=== PATIENT | female | born 1965 | race Caucasian/White ===

== ENCOUNTER → 2024-06-23 | Outpatient (CLI) | payer BC ==
--- NOTE | 2024-06-23 16:30 | CT ---
EXAMINATION TYPE: CT cervical spine wo con DATE OF EXAM: 06/23/2024 COMPARISON: None CLINICAL INDICATION: Female, 59 years old with history of M62.81 MUSCLE WEAKNESS M47.812 C SPONDYLOSI S W/O M; PHH, Neck pain x years. TECHNIQUE: CT scan of the cervical spine is obtained without contrast, axial images are obtained, sa gittal and coronal reformatted images are also reviewed. CT DLP: [address] CTDI: mGy Automated exposure control for dose reduction was used. FINDINGS: The craniovertebral junction relationship to the prevertebral soft tissues are normal. There is a slight 2 to 3 mm anterolisthesis of C3 on C4. There is loss of the normal cervical lordosi s. The disc spaces are well preserved in height and there is no significant degenerative disc disease. There is moderate to marked degenerative osteoarthritis of the facet joints at the C2-3 and C3-4 leve ls bilaterally. There is minimal degeneration of the uncovertebral joints at the C5-6 level. There is multilevel bony neural foraminal encroachment as follows; moderate to severe at C3-4 on the left and mild at C5-6 on the right. There is a very mild broad-based disc protrusion at C5-6 resulting in mild mass effect on the ventral aspect of the thecal sac. There is no cervical stenosis. Paraspinal soft tissues are unremarkable. IMPRESSION: 1. Slight anterolisthesis of C3 on C4 and loss of the normal cervical lordosis. 2. No significant degenerative disc disease. Mild broad-based disc protrusion at C5-6 as described ab ove. 3. No cervical stenosis. 4. Moderate to marked osteoarthritis of the facet joints in the upper cervical spine bilaterally. 5. Moderate to severe bony neural foraminal encroachment at C3-4 on the left and mild at C5-6 on the right [facility], , 06/23/2024 4:27 PM
== END | disposition home or self-care (01) ==
LOC: RADCTMAIN 15:26
PROVIDERS: ATTEND Orthopaedic Surgery
DX: M47.812 Spondylosis without myelopathy or radiculopathy, cervical region (principal); M43.12 Spondylolisthesis, cervical region; M50.222 Other cervical disc displacement at C5-C6 level; M62.81 Muscle weakness (generalized); M99.71 Connective tissue and disc stenosis of intervertebral foramina of cervical region
CPT/HCPCS: 72125

== ENCOUNTER → 2024-09-16 | Outpatient (CLI) | payer BC | END | disposition home or self-care (01) | LOC: LABWHC1 11:30 | PROVIDERS: ATTEND Orthopaedic Surgery | DX: Z01.812 Encounter for preprocedural laboratory examination (principal); Z22.322 Carrier or suspected carrier of Methicillin resistant Staphylococcus aureus | CPT/HCPCS: 36415; 86850; 86900; 86901; 87070 ==

== ENCOUNTER 2024-09-24 08:51 | Day surgery (SDC) | payer BC ==
[~2024-09-24 08:51] MED LIST: ONDANSETRON 4 MG/2 ML VIAL IVP PRN; TRANEXAMIC 1,000 MG/100ML-NACL 1,000 MG in SALINE 1 100ML.BAG IVPB PRN
[2024-09-24] MEDS: DEXAMETHASONE SOD PHOSPHATE 4 MG/ML 1 ML VIAL IV ONE (09:34)
[2024-09-24] MEDS: LACTATED RINGERS 1,000 ML IV SCH (09:34)
[2024-09-24] MEDS: GABAPENTIN 300 MG CAP PO PRN (09:35)
[2024-09-24] MEDS: ONDANSETRON 4 MG/2 ML VIAL IVP ONE (09:35)
[2024-09-24] MEDS: ACETAMINOPHEN TAB 500 MG TAB PO PRN (09:35)
[2024-09-24] MEDS: IV FLUID CONTINUATION 1,000 ML IV ONE ×2 (09:44→11:14)
[2024-09-24] MEDS: SCOPOLAMINE 1 MG/72 HR PATCH TRANSDERM STA (09:56)
--- NOTE | 2024-09-24 10:09 | P.HPOR ---
"History of Present Illness H&P Date: 09/16/24 .D:Date: 09/16/24 : 11:14am .T:Title: PRE OP HP AND ASSESSMENT [facility] [address] [place] [id number]| HERNANDO MACIAS DO Patient Name: ARABELLA SHANE Age/Sex: 59, FEMALE : 67 DATE OF SERVICE: May 20, 2024 7:00?AM EDTVISIT TYPE: PREOPERATIVE H&P Approved RM CLINICAL SUMMARY: ARABELLA SHANE is a 59-year-old female who presents with severe cervical neck pain (VAS: 7), upper extremity weakness, and radiculopathy. Imaging studies reveal C3-6 spondylosis with stenosis, degenerative disc disease with osteophyte formation, and facet arthropathy. Physical examination demonstrates neck pain with limited range of motion, upper extremity weakness that worsens with movement, and radicular symptoms. Conservative management has failed to provide adequate relief. After thorough discussion of treatment options, risks, and benefits, the patient has elected to proceed with C3-6 anterior cervical discectomy and fusion (ACDF). Preoperative clearance has been requested from the patient's PCP. The patient has been educated on the surgical procedure, potential complications, and postoperative course. She will follow up postoperatively to assess surgical outcomes, neurological status, and functional improvement. The patient has demonstrated understanding of the proposed treatment plan and associated risks. Surgial Plan: C3-6 ANTERIOR CERVICAL DISCECTOMY AND FUSION CHIEF COMPLAINT: CERVICAL NECK PAIN VAS: 7 IMPRESSION: It was my pleasure to have seen and examined ARABELLA SHANE . I reviewed the patient's clinical syndrome, physical findings, and imaging studies during the appointment today. It is my impression that the patient has a diagnosis of. C3-6 SPONDYLOSIS WITH STENOSIS C3-6 DISC DEGENERATION UE RADICULPOATHY NECK PAIN Spine Surgery Clinical and Risk Review ARABELLA SHANE is a 59, FEMALE presenting for evaluation of NECK PAIN, UE WEAKNESS AND PAIN . It was my pleasure to have seen and examined ARABELLA SHANE . In our visit today we have had a chance to go over subjective complaints, physical examination findings and treatments including the natural course history without intervention and various interventional options. The patient's imaging demonstrates the following findings: C3-6 SPONDYLOSIS WITH STENOSIS C3-6 DEGENERATIVE DISC DIASEASE WITH OSTEOPHYTE FORMATION AND STENOSIS FACET ARTHROPATHY On a physical exam, Ammy Singleton demonstrates the following findings: NECK PAIN, UE PAIN UE WEAKNESS PAIN WITH ROM OF THE NECK, PAIN WITH MOVEMENT UE WEAKNESS WITH MORE MOTION I have explained to the patient that as their condition progresses it will cause further neurological deficits and eventual paralysis. Based on the patients imaging, physical exam, and the rapid progression and disabling nature of their symptoms, at this time I recommend surgery in the form of a: C3-6 ANTERIOR CERVICAL DISCECTOMY AND FUSION I discussed the risk and benefits of this procedure at length with ARABELLA SHANE . The patient agreed to consider pursuing the procedure above mentioned. Prior to surgery, they should follow up with her PCP (Cardio, ID, IM etc) for clearance. Questions were invited and answered, and the patient wishes to proceed as outlined below. Currently, I am recommending: C3-6 ANTERIOR CERVICAL DISCECTOMY AND FUSION Review of surgical risks and benefits as well as an educational packet on the proposed surgical procedure. Risks: All surgical procedures come with inherent risks, including those related to positioning, anesthesia, intraoperative findings, and postoperative complications. It is important to understand that surgery does not come with any guarantee of a successful outcome as complications and adverse events are always possible. The patient was given a handout in the office today discussing the surgical procedure and risks associated with the intervention, both of which were discussed with the patient. These risks include but are not limited to the following: Experiencing same, different or even worse symptoms in back, neck, arms, or legs compared to before surgery. Requiring further surgery or other forms of treatment presently or at some time in the future at same or other levels of the intended spine surgery. On an extreme but fortunately relatively rare basis severe complications such as blindness, stroke, heart attack, temporary and/or permanent nerve injury, paralysis, coma, or may occur, sometimes without known explanation. Surgical complications may include but are not limited to risk of infection, fluid accumulation in the surgical dissection site, including a seroma or hematoma, that requires additional surgery, wound drainage, bleeding, new numbness or weakness, vision changes/loss, spinal fluid leakage, non-healing and/or infected incision, headaches, difficulty or inability to swallow, hoarseness, hemopneumothorax, pneumothorax, impotence, retrograde ejaculation, vaginal dryness; injury to nerves, spinal cord, blood vessels, lymphatics or other vital organs (i.e., bowel injury, injury to the great vessels); heterotopic bone formation; complications related to the hardware such as screws, rods, cages including misplaced hardware, device failure, instrumentation at the wrong spine level, hardware fracture/breakage, or hardware loosening; vertebral failure of the spinal column above or below the newly placed hardware; retained surgical instrumentations or devices and the need for further surgery. Medical risks of the planned spine surgery include but are not limited to generalized Infections to the whole body or local areas outside of the surgical site (sepsis), heart attack, bleeding, anaphylaxis, meningitis, seizure, epilepsy, hearing loss, burn mtz, laceration of the head or other areas of the body, bruising, hypersensitivity of the skin, bladder over distension; allergic reaction; shoulder injury related to positioning; fat, blood and air clots to other areas of the body like heart, lungs, brain; failure of internal organs such as lungs, kidneys, liver and excessive bleeding. If blood transfusions are necessary, note that transfusions may cause intolerance reactions such as anaphylaxis or other complex reactions. Despite best efforts, the results of spine surgery might not heal in terms of bone, soft tissues such as skin, fascia, ligaments, and joints. Additionally, in order to achieve best possible results, spine surgery may be carried out beyond the initially planned levels and involve decompression, fusion including insertion of hardware at levels other than the original intended area of surgical interest change some portions of the procedure in order to ensure the best possible outcomes. With spine surgery and spinal fusion, there are different off label uses of instrumentation (devices, implants and hardware) as well as biological substances (bone morphogenic proteins, demineralized bone matrix) as well as using extra bone from allograft sources (i.e. cadaver bone) or autograft (iliac crest bone, ribs, or the spine itself). The patient has been given information about these practices and their inherent risks and benefits. The patient has had a chance to review all the listed information, has been given print outs detailing this information, and has had all his/her questions answered to their satisfaction. It was my pleasure to have seen and examined ARABELLA SHANE . In our visit today we have had a chance to go over my understanding of our patient's current condition, the natural course history without intervention and various interventional options. Questions were invited and answered, and the patient wishes to proceed as outlined above. I have seen and examined the patient for 25 minutes and we have spent more than 50% of the time in repeat and detailed counseling about the patient's condition, its natural course history without and as much as can be predicted with surgery and re-review of various surgical treatment options. In conclusion, ARABELLA SHANE requested we proceed with the above suggested surgery and are willing to accept risks and limitations of the suggested surgery as to the nature of the disease process and our best attempts at treatment for the condition. Thank you again for allowing us to be part of your patient's care. Please don't hesitate to contact me if you have any further questions. FOLLOW UP: POSTOP PLAN AT NEXT VISIT: RECHECK PATIENT EDUCATION: Medications Reviewed: YES In our visit today the patient and I have had a chance to go over my understanding of their current condition, the natural course history without intervention and various interventional options. Questions were invited and answered, and the patient wishes to proceed as outlined above. I will be sure to keep you updated after the patient returns here for further follow-up. Thank you again for your referral. Please do not hesitate to contact me if you have any further questions. Signed and authenticated by: Sep 16, 2024 11:22?AM EDT DO [facility] [address] [place] [address] This document is confidential, intended only for the named recipient(s) and may contain information that is privileged or exempt from disclosure under applicable law. If you are not the intended recipient(s), you are notified that the dissemination, distribution or copying of this information is strictly prohibited. If you received this message in error, please notify the sender then delete this message. # SIGNED BY Hernando Macias (GOO)09/16/2024 11:26AM Past Medical History Past Medical History: Fibromyalgia, GERD/Reflux, Hyperlipidemia, Thyroid Disorder Additional Past Medical History / Comment(s): no meds for cholesterol at this time. cathleen, migraines-botox, neck pain History of Any Multi-Drug Resistant Organisms: None Reported Past Surgical History: Breast Surgery Additional Past Surgical History / Comment(s): colonoscopy,.D&C Past Anesthesia/Blood Transfusion Reactions: No Reported Reaction Additional Past Anesthesia/Blood Transfusion Reaction / Comment(s): no blood products Smoking Status: Former smoker - Past Family History Mother Family Medical History: Cancer Father Additional Family Medical History / Comment(s): alzheimer. Medications and Allergies Home Medications Medication Instructions Recorded Confirmed Type Unk Tums 1 tab PO DIRECTED PRN 09/18/24 09/24/24 History Amitriptyline HCl 10 mg PO HS 09/18/24 09/24/24 History Cholecalciferol [Vitamin D3 (125 125 mcg PO DAILY 09/18/24 09/24/24 History Mcg = 5000 Iu)] Levothyroxine Sodium 112 mcg PO DAILY 09/18/24 09/24/24 History Total Restore Gut Health 1 dose PO DAILY 09/18/24 09/24/24 History Unk Fish Oil. 1 tab PO DAILY 09/18/24 09/24/24 History Unk Multi Vitamin 1 tab PO DAILY 09/18/24 09/24/24 History Allergies Allergy/AdvReac Type Severity Reaction Status Date / Time aspirin AdvReac stomach Verified 09/24/24 09:09 burning NSAIDS (Non-Steroidal AdvReac stomach Verified 09/24/24 09:09 Anti-Inflamma burning Physical Examination Osteopathic Statement: *. No significant issues noted on an osteopathic structural exam other than those noted in the History and Physical/Consult."
[2024-09-24] MEDS ORDERED: NEOSTIGMINE 1 MG/ML 10 ML VIAL ONE (11:08)
[2024-09-24] MEDS ORDERED: MIDAZOLAM 2 MG/2 ML VIAL ONE (11:08)
[2024-09-24] MEDS ORDERED: HYDROmorphone (PF) 1 MG/ML ONE (11:08)
[2024-09-24] MEDS ORDERED: PROPOFOL 10 MG/ML 20 ML VIAL IV ONE (11:08)
[2024-09-24] MEDS ORDERED: GLYCOPYRROLATE 0.2 MG/ML 2 ML VIAL ONE (11:08)
[2024-09-24] MEDS ORDERED: ROCURONIUM 10 MG/ML (5 ML VIAL) IV ONE (11:08)
[2024-09-24] MEDS ORDERED: TRANEXAMIC 1,000 MG/100ML-NACL PREMIX BAG ONE (11:08)
[2024-09-24] MEDS ORDERED: LIDOCAINE 1% INJ 10MG/ML (20 ML MDV) ONE (11:08)
[2024-09-24] MEDS ORDERED: fentaNYL (PF) 50 MCG/ML 2 ML AMP ONE (11:08)
[2024-09-24] MEDS ORDERED: KETAMINE HCL IN 0.9 % NACL 50 MG/5 ML SYRINGE ONE (11:08)
[2024-09-24] MEDS ORDERED: SUCCINYLCHOLINE CHLORIDE 200 MG/10 ML VIAL IV ONE (11:08)
[2024-09-24] MEDS: THROMBIN (BOVINE) 5,000 UNIT VIAL TOPICAL ONE (11:46)
[2024-09-24] MEDS: LACTATED RINGERS 1,000 ML IV ONE (13:20)
--- NOTE | 2024-09-24 13:21 | P.OP ---
Date of Procedure: 09/24/24 Preoperative Diagnosis: 1. 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 CERVICAL STENOSIS WITH RADICULOPATHY 4. NECK PAIN Postoperative Diagnosis: 1. 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 CERVICAL STENOSIS WITH RADICULOPATHY 4. NECK PAIN Procedure(s) Performed: 1. C3-4 ANTERIOR CERVICAL INTERBODY ARTHRODESIS 2. C4-5 ANTERIOR CERVICAL INTERBODY ARTHRODESIS 3. C5-6 ANTERIOR CERVICAL INTERBODY ARTHRODESIS 4. C3-6 ANTERIOR CERVICAL INSTRUMENTATION 5. C3-4, C4-5, C5-6 INSERTION OF BIOMECHANICAL DEVICES CAGES x3 USE OF IONM USE OF IO MICROSCOPE Implants: -KATJA CASCADIA CAGE -KATJA OZARK PLATE/SCREW -MAGNATOS, AUTOGRAFT Anesthesia: GETA Surgeon: Connor Ross Framer #1: Aquiles Evans (WAS PRESENT AND ASSISTED WITH ALL ASPECST OF THE CASE FROM POSITION TO DRESSING PLACEMENT) Estimated Blood Loss (ml): 25 IV fluids (ml): 1,200 Urine output (ml): 300 Pathology: none sent Condition: stable Disposition: PACU Indications for Procedure: ARABELLA SHANE is a 59-year-old female who presents with severe cervical neck pain (VAS: 7), upper extremity weakness, and radiculopathy. Imaging studies reveal C3-6 spondylosis with stenosis, degenerative disc disease with osteophyte formation, and facet arthropathy. Physical examination demonstrates neck pain with limited range of motion, upper extremity weakness that worsens with movement, and radicular symptoms. Conservative management has failed to provide adequate relief. After thorough discussion of treatment options, risks, and benefits, the patient has elected to proceed with C3-6 anterior cervical discectomy and fusion (ACDF). Preoperative clearance has been requested from the patient's PCP. The patient has been educated on the surgical procedure, potential complications, and postoperative course. She will follow up postoperatively to assess surgical outcomes, neurological status, and functional improvement. The patient has demonstrated understanding of the proposed treatment plan and associated risks. Surgial Plan: C3-6 ANTERIOR CERVICAL DISCECTOMY AND FUSION Description of Procedure: C3-6 ACDF The patient was seen and examined in the preoperative area. All preoperative protocols were followed. Informed consent was obtained, risks and benefits of the procedure were discussed at length. Risks including bleeding infection damage to the surrounding tissue and risk of reoperation were discussed with the patient. Risk of anesthesia up to and including was discussed with the patient. These are outlined in the risk review. They were willing to accept these risks and all the risks of surgery. The patient was given a weight-based dose of antibiotics in the form of 2 g Ancef. The patient was seen and evaluated by the anesthesia team who deemed them fit for surgery. The site was marked, the patient was willing to proceed with the procedure. The patient was transferred to the operative suite by the Department of anesthesia. They were then drifted off to sleep by the department anesthesia and GETA was performed. The patient tolerated this well. White catheter was placed by nursing staff, a-traumatically. Once confirmation of lines and ventilation the patient was transferred to a Supine Albaro table very carefully. All bony prominences including wrists, elbows, axilla, chest, hips, and thighs, and feet were padded very well. Special attention was paid to the genitalia, and these were padded accordingly. SCDs were placed on bilateral lower extremities and were connected. Arms were well padded and placed at their side thumbs up. Once in position, again we confirmed good ventilation capabilities and that lines were running appropriately. The patients Cervical spine was then exposed. 1010s were placed outlining the incision site. Standard alcohol was used to clean the incision site and allowed to dry. C-arm was used to bio-pamella the patient and confirm level for incision which was marked with a skin marker. Operative briefing was performed with all teams and everyone in agreement to proceed. The patient was then prepped and draped in a normal sterile fashion. Timeout was then performed, and all parties agreed with the procedure to be performed. Transverse skin incision was then made on the right side of the patient's neck 3 cm and dissection taken down to the platysma which was split transversely. Sub platysma flap was made, and interval identified between SCM and medial structures. Omohyoid was visualized and protected. Blunt dissection taken down to the anterior cervical fascia which was identified. Blunt prob was then placed and lateral image taken which confirmed levels for operation. These levels were then marked with a bovi. Subperiosteal dissection of the longissimus muscles were then done over these levels identifying uncovertebral joints bilaterally. Retractor was then placed deep to these muscles and held in place with a bed arm. [place] pins were placed into C3 and C4 and gentle distraction taken out over the levels. Olivia rongeur used to remove disc material. Operating microscope brought in for visualization. Complete discectomy performed at this level with curette, rongure and pituitary. High speed lisette used to remove osteophytes anteriorly and posteriorly until PLL was identified. 6-0 up curette then used to identify the canal and ressect the PLL. 2-0 and 3-0 Kerrison used then to remove PLL and disc herniation and performed b/l foraminotomies. Once good decompression was accomplished, meticulous hemostasis was performed. Sizers were then placed under lateral fluoroscopy until the desired height and lordosis. Cage was then selected, packed with autograft and allograft and placed under lateral imaging. Once in good position it was tested and stable. Motors run before and after cage placement were stable. The wound was irrigated, and autograft placed lateral to the cage anteriorly for fusion. [place] pin was then removed from C3 and placed into C5 and bone wax placed in their void. Gentle distraction taken out over C4-5 now. Complete discectomy done at C4-5 as described including decompression, b/l foraminotomies and PLL resection. Burring of endplates was minimal, osteophytes removed as described. Spacers were then sized and placed under lateral imaging. Cage selected, packed with graft and placed under lateral images. Once in position, meticulous hemostasis performed, and motors remained stable before and after cage placement. AP image confirmed good placement of cages. Wound was irrigated. At C5-6, [place] pins were placed into C5 and C6 and gentle distraction taken out over the levels. Olivia rongeur used to remove disc material. Operating microscope brought in for visualization. Complete discectomy performed at this level with curette, rongure and pituitary. High speed lisette used to remove osteophytes anteriorly and posteriorly until PLL was identified. 6-0 up curette then used to identify the canal and ressect the PLL. 2-0 and 3-0 Kerrison used then to remove PLL and disc herniation and performed b/l foraminotomies. Once good decompression was accomplished, meticulous hemostasis was performed. Sizers were then placed under lateral fluoroscopy until the desired height and lordosis. Cage was then selected, packed with autograft and allograft and placed under lateral imaging. Once in good position it was tested and stable. Motors run before and after cage placement were stable. The wound was irrigated, and autograft placed lateral to the cage anteriorly for fusion. A separate, non-integrated plate was then selected and sized under lateral image. The plate was then placed with screws. Fixed screws drilled into C6 b/l and screws placed. Then into C5 C4 and C3 bilaterally. All locking mechanisms were set, and all screws had good purchase. Final AP and lateral images taken confirmed good placement of hardware and good reduction and roman catholic of height. The wound was then irrigated copiously with NSS. Surgicel placed deep in the wound. A deep drain placed out a separate incision and sewed into place. Layered closure then performed with 3-0 Vicryl in the platysma and sub-Q tissue. 2-0 Nylon placed in the skin The wound was then cleaned, dried and skin glue placed. Once glue dried telfa, 4x4, and tegaderms were placed for dressing. The patient was then transferred back to their hospital bed a-traumatically. The drain continued to hold suction. They were placed in a soft collar. They were then awakened by the department of anesthesia having tolerated the procedure well without complications.
[2024-09-24] MEDS ORDERED: MAGNESIUM HYDROXIDE 2,400 MG/30 ML CUP PO PRN (13:43)
[2024-09-24] MEDS ORDERED: ONDANSETRON 4 MG/2 ML VIAL IVP PRN (13:43)
[2024-09-24] MEDS ORDERED: HYDROcodone/APAP 5-325MG 1 EACH TAB PO PRN (13:43)
[2024-09-24] MEDS ORDERED: SENNOSIDES-DOCUSATE SODIUM 1 EACH TAB PO PRN (13:43)
[2024-09-24] MEDS ORDERED: HYDROmorphone 1 MG/ML 1 ML SYRINGE IVP PRN (13:43)
[2024-09-24] MEDS ORDERED: HYDROcodone/APAP 10-325MG 1 EACH TAB PO PRN ×2 (13:43→15:32)
--- NOTE | 2024-09-24 13:45 | FL ---
EXAMINATION TYPE: FL guidance operating room, XR cervical spine limited DATE OF EXAM: 09/24/2024 FLUOROSCOPY C3-C6 Fusion 46sec fluoro time .[id number] Ross 4 images are submitted. [facility], , 09/24/2024 1:43 PM
[2024-09-24] MEDS: HYDROmorphone 0.5 MG/0.5 ML SYRINGE IVP PRN ×2 (14:03→16:48)
[2024-09-24] MEDS: GABAPENTIN 300 MG CAP PO SCH (16:49)
[2024-09-24] MEDS: ACETAMINOPHEN TAB 325 MG TAB PO SCH (18:06)
--- NOTE | 2024-09-24 18:17 | CT ---
EXAMINATION TYPE: CT cervical spine wo con CT DLP: 345 mGycm, Automated exposure control for dose reduction was used. DATE OF EXAM: 09/24/2024 5:30 PM COMPARISON: Cervical spine images 25, CT cervical spine 06/23/2024, outside institution MRI cervical s pine 04/08/2024, cervical spine radiographs 04/06/2024. CLINICAL INDICATION:Female, 59 years old with history of s/p C3-C6 ACDF; PHH, S/P C3-C6 ACDF., pain TECHNIQUE: Axial CT images from the skull base to the inferior aspect of T2 we obtained without intra venous contrast. Coronal and sagittal reformatted images were also reviewed. FINDINGS: Postsurgical changes from anterior cervical fusion with intervertebral disc fusion cages involving C3 -C6. Hardware appears intact with appropriate alignment. Normal alignment of the cervical spine. Vert ebral body heights are maintained. No acute fracture. There is expected surrounding soft tissue gas a nd edema. No distinct organized fluid collection identified. Multilevel facet arthropathy. No significant spinal canal stenosis. Varying degrees of neural foramin al stenosis redemonstrated. Mild biapical pleural-parenchymal scarring. IMPRESSION: Post surgical changes from ACDF C3-C6. No CT evidence for complication. [facility], , 09/24/2024 6:15 PM
--- NOTE | 2024-09-24 22:06 | P.PN ---
Progress Note - Text Progress Note Date: 09/24/[address] reviewed. Hardware in good positiong. Excellent reduction and realignment. No evidence of complicating process.
[2024-09-25 07:28] VITALS: BP 118/71; PULSE 74; RESP 16; TEMP 98.3
[2024-09-25] MEDS: SENNOSIDES-DOCUSATE SODIUM 1 EACH TAB PO SCH (07:48)
[2024-09-25] MEDS: HYDROcodone/APAP 5-325MG 1 EACH TAB PO PRN (07:49)
[2024-09-25 07:55] LABS: Basophils # (A) 0.03 X 10*3/uL (0.00-0.10); Basophils % (A) 0.2 %; Eosinophils # (A) 0.01 X 10*3/uL (0.04-0.35); Eosinophils % (A) 0.1 %; HCT 40.3 % (37.2-46.3); HGB 12.9 g/dL (12.0-15.0); Immature Grans, Automated 0.40 %; Lymphocytes # (A) 2.39 X 10*3/uL (0.90-5.00); Lymphocytes % (A) 17.7 %; MCH 29.1 pg (27.0-32.0); MCHC 32.0 g/dL (32.0-37.0); MCV 91.0 FL (80.0-97.0); Monocytes # (A) 0.64 X 10*3/uL (0.20-1.00); Monocytes % (A) 4.8 %; NRBC Per 100 WBC 0 X 10*3/uL (0.00-0.01); Neutrophils # (A) 10.34 X 10*3/uL (1.80-7.70); Neutrophils % (A) 76.8 %; Platelet Count 229 X 10*3/uL (140-440); RBC 4.43 X 10*6/uL (4.10-5.20); RDW 13.6 % (11.5-14.5); WBC 13.47 X 10*3/uL (4.50-10.00)
[2024-09-25 08:06] LABS: Anion Gap 12.00 mmol/L (4.00-12.00); BUN/Creat Ratio 12.38 Ratio (12.00-20.00); Blood Urea Nitrogen 9.9 mg/dL (9.0-27.0); Calcium 9.4 mg/dL (8.7-10.3); Carbon Dioxide 24.0 mmol/L (21.6-31.8); Chloride 109 mmol/L (96-109); Glucose 107 mg/dL (70-110); Potassium 4.1 mmol/L (3.5-5.5); Sodium 145 mmol/L (135-145)
--- NOTE | 2024-09-25 08:34 | P.DS ---
Providers Date of admission: 09/24/2024 Expected date of discharge: 09/25/24 Attending physician: Connor Ross DO Consults: 09/24/24 13:43 Consult Physician Routine Consulting Provider: Alexandre Kee Reason/Comments: medical management s/p C3-C6 ACDF Do you want consulting provider notified?: Yes Primary care physician: Rupesh Landis MD Hospital Course: Date of admission: 09/24/2024 Date of discharge: 09/25/2024 Admission diagnosis: 1. 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 CERVICAL STENOSIS WITH RADICULOPATHY 4. NECK PAIN Discharge diagnosis: Same Attending physician: Dr. oRss Surgical procedures: C3-C6 ACDF Brief history: Patient is a 59-year-old female with a history of C3-6 spondylosis with stenosis and radiculopathy; cervical stenosis with radiculopathy; neck pain. At this point patient has failed conservative treatment measures and has opted to proceed with a elective C3-C6 ACDF. Hospital course: Details of patient's surgery can be found in operative report. Patient tolerated the procedure well and was subsequently transported to orthopedic floor. Patient's orthopeidc and medical care was provided daily. Patient had daily laboratory tests performed for evaluation of overall blood counts. Patient had daily physical therapy to include strengthening range of motion as well as education with walker ambulation. Patient was noted to have a relatively uneventful postoperative course. Patient reported satisfactory pain control with oral pain medications by postoperative day 1. Patient showed satisfactory progress with physical therapy. Patient moved steadily through the program and had no difficulty meeting the goals by postoperative day 1. Given patient's otherwise satisfactory course and having met physical therapy goals, plan is to discharge patient home on postoperative day 1. Discharge condition/disposition: Patient will be discharged home in stable condition. Discharge medications: Instructions are given on resumption of patient's normal daily medications per primary care recommendation, in addition patient will be prescribed [place]; Flexeril; gabapentin; signed; Duricef. Spine Discharge and Recovery Instructions Date of Surgery: 09/24/2024 Diagnosis: 1. 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 CERVICAL STENOSIS WITH RADICULOPATHY 4. NECK PAIN Procedure: C3-C6 ACDF Medications: See medication list All medication refills should be obtained through your primary care doctor or your clinic spine surgeon. Please discuss prescription refills at your follow up appointment. Do not call the hospital for medication refills. Dressing: Leave your dressing in place for a total of 5 days post operatively. Then you may remove your dressing and leave open to air. Keep the area clean and if not able to keep area clean, then cover with sterile gauze and tape. Showering: You may shower 3 days after your procedure allowing soap and water to run over incision. Do not scrub. Do not soak. Blot dry. Follow up: Please confirm a follow up appointment with your surgeon 3 weeks post operatively. Please make an appointment to follow up with your PCP in 1-2 weeks after surgery for evaluation '3 phase, 3-week plan' POST OP WEEKS 1-3 1. Lifting/carrying/pushing/pulling limited to less than 5 pounds. 2. Do not sit for longer than 15 minutes at one time. Get up and walk around. Prolonged sitting is NOT advised. If you lay down, see if you can tolerate laying down on you front (belly side) 3. Walk for periods of 15 minutes = 1 mile but no longer; do it multiple times times each day. 4. Ice your low back after activity. POST OP WEEKS 3-6 1. Lifting limited to less than 20 pounds. 2. Do not sit for longer than 30 minutes at a time. Frequently change positions. Use a sit-to stand workstation or take frequent breaks from sitting if you have returned to work. 3. Walk for 30 minutes each day. If possible, do these three or more times a day POST OP WEEKS 6+ At your 6-week appointment we will give you a physical therapy referral to focus on a core stabilization and strengthening program. You should also work on leg & buttock strengthening, hamstring & quadriceps stretching, and continue a low impact aerobic activity program such as swimming, walking, or riding a stationary bicycle. During the initial 6 weeks after your surgery, you are at the highest risk of re-injuring your spine. You should generally avoid BLT's (bending, lifting and twisting combination motions) and follow the above guidelines to reduce the chance of reinjury. You can anticipate post op appointments in our office at approximately 3 weeks and 6 weeks after your surgery. INCISION CARE: If your incision is not draining you do NOT need to cover it with a dressing. Keep your incision clean, dry and intact. In most cases, we apply skin glue, misty or sutures to the incision at the time of surgery. This will be like a crust or have the appearance of a scab and will fall off in time on its own. The stitches or misty need to be removed at 3 weeks post op appointment. You may begin to shower 3 days after surgery (this allows the glue to faria well). However, please avoid scrubbing the incision site or peeling off any of the skin glue. This will ensure optimal healing of your incision. Also, during this time avoid soaking the incision area in water - this includes swimming pools, hot tubs or baths. No ointments, lotions or oils on the incision until your surgeon allows. Leave misty, sutures or glue in place. Neurological dysfunction that comes on suddenly can also be a sign of a stroke. Below some common symptoms of a stroke are listed: B - balance difficulty such as sudden onset walking or leaning to one side - NEW E - eye problem such as sudden double vision or trouble seeing on one side - NEW F - Facial weakness or numbness on one side - NEW A - Arm or leg weakness or numbness on one side - NEW S - Slurred speech or difficulty with word finding - NEW T - Time is BRAIN! Call 911 as soon as you recognize these symptoms Diet: Consume a regular diet rich in vegetables and lean protein such as chicken or fish. You should consume in a ratio of approximately 20% fats|40% carbohydrates|40%protein. Vegetables, sweet potatoes, brown rice or quinoa are examples of good carbohydrates. Chips, white bread, cookies and sweets/sugar are examples of bad carbohydrates. Limit your bad carbs, go wild with good carbs. "Life's Simple 7" Guidelines as per [place] [employer] These will help you reclaim your life after surgery and boilermaker helper in your recovery, keeping in mind your restrictions. (1) Get Active. Physical activity can help people lose weight, control high blood pressure and cholesterol, feel emotionally better, and sleep better. (2) Control Cholesterol. Avoid a diet high in saturated fat, trans fat, & cholesterol. Limit whole milk & cream, ice cream, butter, egg yolks, processed meats (like sausage and hot dogs), and fatty meats. Choose healthy foods that are low in saturated fat, trans fat and cholesterol which include: Fruits and vegetables, fiber rich grain products (like whole grain pasta and brown rice), lean meat such as chicken, fish, nuts, seeds, and legumes. (3) Eat Better. Eat small portions. Shop at the grocery with a list and do not stray from it. Tips for a healthy diet include: Limit sodium intake to less than 1500mg daily, avoid prepackaged, processed, and fast foods, choose a diet rich in fruits, vegetables, and whole grain, high fiber foods, and limit saturated & cholesterol in your diet. (4) Manage Blood Pressure. If you have high blood pressure, you should have a cuff at home so that you can check your blood pressure regularly. Be sure you have a good cuff. An arm one is generally better than a wrist one. Bring the cuff to a doctor's appointment to validate that the measurements that your cuff are taking are accurate. Take your blood pressure twice daily when you are sitting down and relaxing. Record the numbers in a log and bring this log with you to your doctors' appointments. (5) Lose Weight if your BMI is above 25. A healthy BMI is between 19-25. To calculate Your BMI, you may use a Standard BMI Calculator on the NIH BMI website: <www.nhlbi.nih.gov/guidelines/obesity/BMI/bmicalc.htm>. Weigh oneself daily. If you are overweight, set a goal to lose weight. A pound a week loss if needed is a good target. (6) Reduce Blood Sugar. Limit foods and liquids with "added sugars." (Added sugars include sucrose, fructose, glucose, maltose, dextrose, high fructose corn syrup, corn syrup, concentrated fruit juice and honey). (7) Stop Smoking. If you smoke, quitting smoking is one of the best things that you can do for your health. Smoking increases your risk of heart attack, stroke, and peripheral vascular disease, which is a build-up of plaque in your arteries. Please discard all the cigarettes and lighters in your house. Have a plan for what you will do when you have the urge to smoke. Direct and second- hand smoke shortens your life as well as the lives of your family, friends and others around you. For your health and the health of those around you, please consider quitting! Proper Bending Body Mechanics: Maintain a wide stance with one foot slightly in front of the other. Keep your back straight. Bend utilizing the strength in your hips and knees. Do not bend at the waist. Maintain the lifted object at your waist-level close to your body. Avoid lifting weight that causes immediately pain or pain anywhere in the body afterwards. Smoking/Nicotine If there was ever one thing that you could do to increase your overall health, decrease your risk of cardiovascular problems by about 39% the second you make the choice, it is to STOP SMOKING. Your body's most instant gratification is the second you stop smoking. We have all heard the studies, read the articles but it is true, smoking is extremely bad for your overall health, and moreover it is detrimental to your bone health. Nicotine, IN ANY FORM, kills bone cells, prevents your body from healing fractures, and significantly prolongs healing after surgery. In spine surgery specifically, it increases your risk of not healing your bones to create a fusion and increases your risk of having a revision surgery due to this up to 60%. I know it is hard. I know it feels impossible. But there are ways. Take control of your life. We are here to help you through it. And when you are ready, ask us and we can direct you to help if you desire. Use the START Plan to Quit Smoking (please visit the Helpguide.org website listed below for more information): S = Set a quit date. Choose a date within the next 2 weeks, so you have enough time to prepare without losing your motivation to quit. If you mainly smoke at work, quit on the weekend, so you have a few days to adjust to the change. T = Tell family, friends, and co-workers that you plan to quit. Let your friends and family in on your plan to quit smoking and tell them you need their support and encouragement to stop. Look for a quit jae who wants to stop smoking as well. You can help each other get through the rough times. A = Anticipate and plan for the challenges you'll face while quitting. Most people who begin smoking again do so within the first 3 months. You can help yourself make it through by preparing ahead for common challenges, such as nicotine withdrawal and cigarette cravings. R = Remove cigarettes and other tobacco products from your home, car, and work. Throw away all your cigarettes (no emergency pack!), lighters, ashtrays, and matches. Wash your clothes and freshen up anything that smells like smoke. Shampoo your car, clean your drapes and carpet, and steam your furniture. T = Talk to your doctor about getting help to quit. Your doctor can prescribe medication to help with withdrawal and suggest other alternatives. If you can't see a doctor, you can get many products over the counter at your local pharmacy or grocery store, including the nicotine patch, nicotine lozenges, and nicotine gum. Resources for Quitting Smoking: <https://www.[place].gov/documents/mdc h/Quit_Tobacco_Resources_for_patients_313480_7.pdf> Supplementation: Take recommended dosages of Vitamin D and Calcium to help fortify your bones and help them to heal. See your health maintenance packet for dosages and recommended levels. DVT/VTE prophylaxis: You will be given compression stockings from the hospital. Wear these daily for the first two weeks after surgery. You may take them off at night. You may be prescribed a medication to help thin your blood. Take this as directed. If you are not prescribed this medication, early and frequent ambulation has been shown to be the best prophylaxis to deep vein thrombosis and sequelae related to this event. Assessment: 1. 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 CERVICAL STENOSIS WITH RADICULOPATHY 4. NECK PAIN Procedures: C3-C6 ACDF Patient Condition at Discharge: Good Plan - Discharge Summary Discharge Rx Participant: No New Discharge Prescriptions: New cefaDROXiL [Duricef] 500 mg PO Q12HR 5 Days #10 cap Sennosides/Docusate Sodium [Senna Plus 8.6-50 mg Softgel] 1 each PO DAILY #20 capsule Cyclobenzaprine [Flexeril] 5 mg PO TID #21 tablet Gabapentin [Neurontin] 300 mg PO TID #30 cap HYDROcodone/APAP 5-325MG [[place] 5-325] 1 tab PO Q6HR PRN #28 tab PRN Reason: Pain No Action Cholecalciferol [Vitamin D3 (125 Mcg = 5000 Iu)] 125 mcg PO DAILY Amitriptyline HCl 10 mg PO HS Levothyroxine Sodium 112 mcg PO DAILY Unk Multi Vitamin 1 tab PO DAILY Total Restore Gut Health 1 dose PO DAILY Unk Tums 1 tab PO DIRECTED PRN PRN Reason: Heartburn Unk Fish Oil. 1 tab PO DAILY Discharge Medication List Unk Tums 1 tab PO DIRECTED PRN 09/18/24 [History] Amitriptyline HCl 10 mg PO HS 09/18/24 [History] Cholecalciferol [Vitamin D3 (125 Mcg = 5000 Iu)] 125 mcg PO DAILY 09/18/24 [History] Levothyroxine Sodium 112 mcg PO DAILY 09/18/24 [History] Total Restore Gut Health 1 dose PO DAILY 09/18/24 [History] Unk Fish Oil. 1 tab PO DAILY 09/18/24 [History] Unk Multi Vitamin 1 tab PO DAILY 09/18/24 [History] Cyclobenzaprine [Flexeril] 5 mg PO TID #21 tablet 09/25/24 [Rx] Gabapentin [Neurontin] 300 mg PO TID #30 cap 09/25/24 [Rx] HYDROcodone/APAP 5-325MG [[place] 5-325] 1 tab PO Q6HR PRN #28 tab 09/25/24 [Rx] Sennosides/Docusate Sodium [Senna Plus 8.6-50 mg Softgel] 1 each PO DAILY #20 capsule 09/25/24 [Rx] cefaDROXiL [Duricef] 500 mg PO Q12HR 5 Days #10 cap 09/25/24 [Rx] Follow up Appointment(s)/Referral(s): Connor Ross DO [Doctor of Osteopathic Medicine] - 2 Weeks Activity/Diet/Wound Care/Special Instructions: Spine Discharge and Recovery Instructions Date of Surgery: 09/24/2024 Diagnosis: 1. 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 CERVICAL STENOSIS WITH RADICULOPATHY 4. NECK PAIN Procedure: C3-C6 ACDF Medications: See medication list All medication refills should be obtained through your primary care doctor or your clinic spine surgeon. Please discuss prescription refills at your follow up appointment. Do not call the hospital for medication refills. Dressing: Leave your dressing in place for a total of 5 days post operatively. Then you may remove your dressing and leave open to air. Keep the area clean and if not able to keep area clean, then cover with sterile gauze and tape. Showering: You may shower 3 days after your procedure allowing soap and water to run over incision. Do not scrub. Do not soak. Blot dry. Follow up: Please confirm a follow up appointment with your surgeon 3 weeks post operatively. Please make an appointment to follow up with your PCP in 1-2 weeks after surgery for evaluation '3 phase, 3-week plan' POST OP WEEKS 1-3 1. Lifting/carrying/pushing/pulling limited to less than 5 pounds. 2. Do not sit for longer than 15 minutes at one time. Get up and walk around. Prolonged sitting is NOT advised. If you lay down, see if you can tolerate laying down on you front (belly side) 3. Walk for periods of 15 minutes = 1 mile but no longer; do it multiple times times each day. 4. Ice your low back after activity. POST OP WEEKS 3-6 1. Lifting limited to less than 20 pounds. 2. Do not sit for longer than 30 minutes at a time. Frequently change positions. Use a sit-to stand workstation or take frequent breaks from sitting if you have returned to work. 3. Walk for 30 minutes each day. If possible, do these three or more times a day POST OP WEEKS 6+ At your 6-week appointment we will give you a physical therapy referral to focus on a core stabilization and strengthening program. You should also work on leg & buttock strengthening, hamstring & quadriceps stretching, and continue a low impact aerobic activity program such as swimming, walking, or riding a stationary bicycle. During the initial 6 weeks after your surgery, you are at the highest risk of re-injuring your spine. You should generally avoid BLT's (bending, lifting and twisting combination motions) and follow the above guidelines to reduce the chance of reinjury. You can anticipate post op appointments in our office at approximately 3 weeks and 6 weeks after your surgery. INCISION CARE: If your incision is not draining you do NOT need to cover it with a dressing. Keep your incision clean, dry and intact. In most cases, we apply skin glue, misty or sutures to the incision at the time of surgery. This will be like a crust or have the appearance of a scab and will fall off in time on its own. The stitches or misty need to be removed at 3 weeks post op appointment. You may begin to shower 3 days after surgery (this allows the glue to faria well). However, please avoid scrubbing the incision site or peeling off any of the skin glue. This will ensure optimal healing of your incision. Also, during this time avoid soaking the incision area in water - this includes swimming pools, hot tubs or baths. No ointments, lotions or oils on the incision until your surgeon allows. Leave misty, sutures or glue in place. Neurological dysfunction that comes on suddenly can also be a sign of a stroke. Below some common symptoms of a stroke are listed: B - balance difficulty such as sudden onset walking or leaning to one side - NEW E - eye problem such as sudden double vision or trouble seeing on one side - NEW F - Facial weakness or numbness on one side - NEW A - Arm or leg weakness or numbness on one side - NEW S - Slurred speech or difficulty with word finding - NEW T - Time is BRAIN! Call 911 as soon as you recognize these symptoms Diet: Consume a regular diet rich in vegetables and lean protein such as chicken or fish. You should consume in a ratio of approximately 20% fats|40% carbohydrates|40%protein. Vegetables, sweet potatoes, brown rice or quinoa are examples of good carbohydrates. Chips, white bread, cookies and sweets/sugar are examples of bad carbohydrates. Limit your bad carbs, go wild with good carbs. "Life's Simple 7" Guidelines as per [place] [employer] These will help you reclaim your life after surgery and boilermaker helper in your recovery, keeping in mind your restrictions. (1) Get Active. Physical activity can help people lose weight, control high blood pressure and cholesterol, feel emotionally better, and sleep better. (2) Control Cholesterol. Avoid a diet high in saturated fat, trans fat, & cholesterol. Limit whole milk & cream, ice cream, butter, egg yolks, processed meats (like sausage and hot dogs), and fatty meats. Choose healthy foods that are low in saturated fat, trans fat and cholesterol which include: Fruits and vegetables, fiber rich grain products (like whole grain pasta and brown rice), lean meat such as chicken, fish, nuts, seeds, and legumes. (3) Eat Better. Eat small portions. Shop at the grocery with a list and do not stray from it. Tips for a healthy diet include: Limit sodium intake to less than 1500mg daily, avoid prepackaged, processed, and fast foods, choose a diet rich in fruits, vegetables, and whole grain, high fiber foods, and limit saturated & cholesterol in your diet. (4) Manage Blood Pressure. If you have high blood pressure, you should have a cuff at home so that you can check your blood pressure regularly. Be sure you have a good cuff. An arm one is generally better than a wrist one. Bring the cuff to a doctor's appointment to validate that the measurements that your cuff are taking are accurate. Take your blood pressure twice daily when you are sitting down and relaxing. Record the numbers in a log and bring this log with you to your doctors' appointments. (5) Lose Weight if your BMI is above 25. A healthy BMI is between 19-25. To calculate Your BMI, you may use a Standard BMI Calculator on the NIH BMI website: <www.nhlbi.nih.gov/guidelines/obesity/BMI/bmicalc.htm>. Weigh oneself daily. If you are overweight, set a goal to lose weight. A pound a week loss if needed is a good target. (6) Reduce Blood Sugar. Limit foods and liquids with "added sugars." (Added sugars include sucrose, fructose, glucose, maltose, dextrose, high fructose corn syrup, corn syrup, concentrated fruit juice and honey). (7) Stop Smoking. If you smoke, quitting smoking is one of the best things that you can do for your health. Smoking increases your risk of heart attack, stroke, and peripheral vascular disease, which is a build-up of plaque in your arteries. Please discard all the cigarettes and lighters in your house. Have a plan for what you will do when you have the urge to smoke. Direct and second- hand smoke shortens your life as well as the lives of your family, friends and others around you. For your health and the health of those around you, please consider quitting! Proper Bending Body Mechanics: Maintain a wide stance with one foot slightly in front of the other. Keep your back straight. Bend utilizing the strength in your hips and knees. Do not bend at the waist. Maintain the lifted object at your waist-level close to your body. Avoid lifting weight that causes immediately pain or pain anywhere in the body afterwards. Smoking/Nicotine If there was ever one thing that you could do to increase your overall health, decrease your risk of cardiovascular problems by about 39% the second you make the choice, it is to STOP SMOKING. Your body's most instant gratification is the second you stop smoking. We have all heard the studies, read the articles but it is true, smoking is extremely bad for your overall health, and moreover it is detrimental to your bone health. Nicotine, IN ANY FORM, kills bone cells, prevents your body from healing fractures, and significantly prolongs healing after surgery. In spine surgery specifically, it increases your risk of not healing your bones to create a fusion and increases your risk of having a revision surgery due to this up to 60%. I know it is hard. I know it feels impossible. But there are ways. Take control of your life. We are here to help you through it. And when you are ready, ask us and we can direct you to help if you desire. Use the START Plan to Quit Smoking (please visit the Helpguide.org website listed below for more information): S = Set a quit date. Choose a date within the next 2 weeks, so you have enough time to prepare without losing your motivation to quit. If you mainly smoke at work, quit on the weekend, so you have a few days to adjust to the change. T = Tell family, friends, and co-workers that you plan to quit. Let your friends and family in on your plan to quit smoking and tell them you need their support and encouragement to stop. Look for a quit jae who wants to stop smoking as well. You can help each other get through the rough times. A = Anticipate and plan for the challenges you'll face while quitting. Most people who begin smoking again do so within the first 3 months. You can he lp yourself make it through by preparing ahead for common challenges, such as nicotine withdrawal and cigarette cravings. R = Remove cigarettes and other tobacco products from your home, car, and work. Throw away all your cigarettes (no emergency pack!), lighters, ashtrays, and matches. Wash your clothes and freshen up anything that smells like smoke. Shampoo your car, clean your drapes and carpet, and steam your furniture. T = Talk to your doctor about getting help to quit. Your doctor can prescribe medication to help with withdrawal and suggest other alternatives. If you can't see a doctor, you can get many products over the counter at your local pharmacy or grocery store, including the nicotine patch, nicotine lozenges, and nicotine gum. Resources for Quitting Smoking: <https://www.[place].gov/documents/[facility]/Quit_Tobacco_Resources_for_patients_313 480_7.pdf> Supplementation: Take recommended dosages of Vitamin D and Calcium to help fortify your bones and help them to heal. See your health maintenance packet for dosages and recommended levels. DVT/VTE prophylaxis: You will be given compression stockings from the hospital. Wear these daily for the first two weeks after surgery. You may take them off at night. You may be prescribed a medication to help thin your blood. Take this as directed. If you are not prescribed this medication, early and frequent ambulation has been shown to be the best prophylaxis to deep vein thrombosis and sequelae related to this event. Discharge Disposition: HOME SELF-CARE
--- NOTE | 2024-09-25 08:45 | P.PN ---
Subjective Progress Note Date: 09/25/24 Principal diagnosis: 1. 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 CERVICAL STENOSIS WITH RADICULOPATHY 4. NECK PAIN Patient was seen at bedside this morning sitting up eating breakfast with soft c-collar in place and dressing present over anterior cervical spine. Patient says she has been up walking a few times since surgery yesterday and has urinated on her own without any issue. Patient says pain is controlled with oral medication. She says she does not note any change in regards to symptoms in the arms yet. Patient says she is looking forward to going home today. Denies any other issues at this time. Objective - Vital Signs Vital signs: Vital Signs Temp 98.3 F 09/25/24 06:45 Pulse 74 09/25/24 06:45 Resp 16 09/25/24 06:45 BP 118/71 09/25/24 06:45 Pulse Ox 100 09/25/24 06:45 FiO2 Intake & Output 09/24/24 09/25/24 09/25/24 18:59 06:59 18:59 Intake Total 2150 Output Total 725 Balance 1425 Weight 88 kg Intake: IV 2150 Output: Urine 700 Estimated Blood Loss 25 Other: Voiding Method Toilet # Voids 4 - Exam Incision appears to be clean, dry, intact. Dressing in place and holding well at this time. Soft c-collar in place. Sensation appears to be equal, symmetric, bilateral intact throughout the upper and lower extremities on exam. There is some generalized tenderness to palpation over the anterior cervical spine near incision. Nontender throughout rest of exam. Patient does have some limited range of motion in the bilateral upper extremities and shoulder flexion, abduction and external/internal rotation secondary to referred stiffness and pain in the shoulders and neck. 4-/5 in all major motor groups in bilateral upper extremities. Radial pulse intact, 2+ bilaterally. Cap refill under 3 seconds in digits of upper extremities. Negative Homans bilaterally. Negative hop bilaterally. Negative clonus bilaterally. - Labs CBC & Chem 7: 09/25/24 04:50 09/25/24 04:46 Labs: Abnormal Lab Results - Last 24 Hours (Table) 09/25/24 Range/Units 04:50 WBC 13.47 H (4.50-10.00) X 10*3/uL Immature Gran # 0.06 H (0.00-0.04) X 10*3/uL Neutrophils # 10.34 H (1.80-7.70) X 10*3/uL Eosinophils # 0.01 L (0.04-0.35) X 10*3/uL Assessment and Plan Assessment: 1. 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 Patient stable at bedside this morning with soft collar in place and dressing present over anterior cervical spine. PT/OT recommendations. Discharge home today. 2. Appreciate medical management 3. Pain management -norco; Flexeril; gabapentin 4. GI prophylaxis -senna 5. DVT prophylaxis -mechanical 6. PT/OT -weightbearing as tolerated; soft c-collar on at all times 7. Encourage incentive spirometer use 8. Discharge planning -discharge home today Time with Patient: Less than 30
[2024-09-25] MEDS: CYCLOBENZAPRINE 5 MG TAB PO PRN (11:10)
== END 2024-09-25 11:24 | disposition home or self-care (01) ==
LOC: OR 08:51 → 4SSUR 13:45 → OR 09-25 11:24
PROVIDERS: ATTEND Orthopaedic Surgery
DX: M48.02 Spinal stenosis, cervical region (principal); M47.22 Other spondylosis with radiculopathy, cervical region; M25.78 Osteophyte, vertebrae; M40.202 Unspecified kyphosis, cervical region; M79.7 Fibromyalgia; E78.5 Hyperlipidemia, unspecified; E07.9 Disorder of thyroid, unspecified; E66.9 Obesity, unspecified; F17.210 Nicotine dependence, cigarettes, uncomplicated; Z68.25 Body mass index [BMI] 25.0-25.9, adult; Z79.890 Hormone replacement therapy; Z79.899 Other long term (current) drug therapy; Z88.6 Allergy status to analgesic agent
CPT/HCPCS: 97161; 80048; 85025; 72040; 72125; 22551; 22552; 20930; 20936; 22853; C1713; J1100; J0690 ×2; J2405; J1171 ×2